=== PATIENT | female | born 1935 | race Caucasian/White ===

== ENCOUNTER 2017-12-20 11:47 | Emergency (ER) | payer OTHER ==
[~2017-12-20] VITALS: Ht 165.1 cm; Wt 80.0 kg
[2017-12-20 12:00] VITALS: BP 182/86; PULSE 101; RESP 16; TEMP 98.1; O2SAT 97
--- NOTE | 2017-12-20 13:47 | PD ---
HPI Chief Complaint: Injury Time Seen by Provider: 13:07 Travel History International Travel<30 days: No Contact w/Intl Traveler<30days: No Traveled to known affect area: No History of Present Illness HPI 82-year-old female presents to the emergency room via ambulance for evaluation of right knee and lower leg pain for the past 6 days. Patient slipped on some water in her kitchen and fell to the right striking her knee on furniture before falling to the ground. States it happened very quickly and she is unsure if she injured her leg in any other way. She denies hitting her doses. Denies any other complaints or injuries. She has been applying ice and taking Tylenol without significant relief in symptoms. Pain is localized to the right knee. She has minimal pain at rest but severe pain with ambulation. States she has been sitting in almost the same spot for the past 6 days because it is too painful to stand up and walk. When she tries to get up pain is localized to the anterior knee without radiation. She denies paresthesias. She is not on blood thinners. PFSH Past Medical History ?: Not Social History Tobacco Use: No Allergies-Medications (Allergen,Severity, Reaction): Coded Allergies: No Known Allergies (Unverified , 12/20/17) Reported Meds & Prescriptions Reported Meds & Active Scripts Active Reported [Unk Anxiety Med] [Unk Bp] 20 Mg DAILY Review of Systems Except as stated in HPI: all other systems reviewed are Neg Physical Exam Narrative GENERAL: Well-nourished, well-developed female no acute distress. Afebrile. SKIN: Focused skin assessment warm/dry. Significant ecchymosis to the right lower extremity from the knee to the ankle. HEAD: Normocephalic. EYES: No scleral icterus. No injection or drainage. NECK: Supple, trachea midline. No JVD or lymphadenopathy. CARDIOVASCULAR: Regular rate and rhythm without murmurs, gallops, or rubs. RESPIRATORY: Breath sounds equal bilaterally. No accessory muscle use. MUSCULOSKELETAL: No cyanosis. Hips stable. Minimal edema of the right lower extremity. No significant bony tenderness to palpation. No calf tenderness. 2 + dorsalis pedis pulse on the right. Patient has full range of motion of the right knee. BACK: Nontender without obvious deformity. No CVA tenderness. Data Data Last Documented VS Vital Signs Date Time Temp Pulse Resp B/P (MAP) Pulse Ox O2 Delivery O2 Flow Rate FiO2 12/20/17 12:00 98.1 101 16 182/86 (118) 97 Orders Orders Knee, Complete (4vws) (12/20/17 ) Tibia/Fibula (Ap/Lat) (12/20/17 ) Franko Bandage (12/20/17 14:18) Ed Discharge Order (12/20/17 15:14) MDM Medical Decision Making Medical Screen Exam Complete: Yes Emergency Medical Condition: Yes Medical Record Reviewed: Yes Differential Diagnosis Sprain, strain, contusion, effusion, dislocation Narrative Course 82-year-old female presents to the emergency room for evaluation of right knee pain and bruising after injuring it 6 days ago. Patient fell to the right striking her knee against furniture. Since then she has had worsening bruising that is spreading down her leg. Patient denies pain in the leg. States it is localized to the anterior knee. It has impeded her ability to ambulate. No paresthesias. Right lower extremity is neurovascularly intact with 2+ dorsalis pedis pulse. Patient has full range of motion of the knee. No bony tenderness to palpation of the knee or lower leg. No significant edema. Compartments soft. There is moderate ecchymosis of the right lower extremity, I suspect due to gravity from the injury. X-ray of the knee shows suprapatellar joint effusion. X-ray of tibia/fibula shows edema without fracture. Patient was placed in an Franko wrap and reports significant improvement in pain. She was offered pain medication but declined. The nurse walked with her down the cabral but she is extremely unsteady. I am concerned she may fall. She has a walker but only lives with her who is not much help. She would benefit from home physical therapy. [id number] note placed. Case management involved and set up home therapy to start on . She is making a follow-up appointment with her PCP for recheck in a few days. If symptoms persist, she may need outpatient MRI. Patient and her family member understand and agree to plan. Diagnosis Primary Impression: Suprapatellar effusion of knee Additional Impression: Traumatic ecchymosis of right lower leg Qualified Codes: S80.11XA - Contusion of right lower leg, initial encounter Referrals: Primary Care Physician Additional Instructions: Rest and drink plenty of fluids. Use Franko wrap and walker as needed. Take Tylenol as directed, as needed for pain. Apply ice to the affected area for 20 minutes at a time, as needed for pain and swelling. Follow-up with a primary care physician for recheck in a few days. Return to the emergency room for worsening symptoms. Disposition: 01 DISCHARGE HOME Condition: Stable Tawanna Dawkins Dec 20, 2017 13:47
--- NOTE | 2017-12-20 14:05 | RADRPT ---
EXAM DATE: 12/20/2017 1:57 PM EDT AGE/SEX: 82 years / Female INDICATIONS: Right knee pain after fall. Patient has bruising and swelling right lower leg. CLINICAL DATA: This is the patient's initial encounter. Patient reports that signs and symptoms have been present for 1 day and indicates a pain score of 8/10. MEDICAL/SURGICAL HISTORY: None. None. COMPARISON: No prior exams available for comparison. FINDINGS: Bony structures are intact and in normal alignment. Joints are intact without dislocation or signifi cant arthropathy. Osseous density is normal. Small suprapatellar joint effusion. Soft tissues are un remarkable. No radiopaque foreign bodies seen. CONCLUSION: 1. Small suprapatellar joint effusion. 2. No acute fracture or dislocation. Electronically signed by: Gerardo Farris MD 12/20/2017 2:03 PM EDT
--- NOTE | 2017-12-20 14:09 | RADRPT ---
EXAM DATE: 12/20/2017 2:01 PM EDT AGE/SEX: 82 years / Female INDICATIONS: Right leg pain, swelling and bruising after fall. CLINICAL DATA: This is the patient's initial encounter. Patient reports that signs and symptoms have been present for 4 - 6 days and indicates a pain score of 8/10. MEDICAL/SURGICAL HISTORY: None. None. COMPARISON: No prior exams available for comparison. FINDINGS: 2 views of the right leg demonstrate no fracture or dislocation. The bones appear mildly under minera lized. There is mild subcutaneous edema. No soft tissue abnormality or radiopaque foreign body is ana ntified. CONCLUSION: Mild subcutaneous edema. No fracture is identified. Electronically signed by: Bj Hernández MD 12/20/2017 2:08 PM EDT
[2017-12-20] MEDS ORDERED: [UNRECOGNIZED DRUG - REMARK] (14:33)
[2017-12-20] MEDS ORDERED: [UNRECOGNIZED DRUG - REMARK] (14:33)
--- NOTE | 2017-12-20 15:14 | HHI.FF ---
Face to Face Verification Diagnosis: (1) Suprapatellar effusion of knee (2) Traumatic ecchymosis of right lower leg Physical Therapy Order: Evaluate and Treat, Improve ambulation, Strength and gait training I have seen patient Yazmin Borden on 12/20/17. My clinical findings support the need for the requested home health care services because: High risk of falls I certify that my clinical findings support that this patient is homebound because: Unsteady gait/balance Tawanna Dawkins Dec 20, 2017 15:14
== END 2017-12-20 15:21 | disposition home or self-care (01) ==
LOC: NEPK 11:47
DX: M25.461 Effusion, right knee (principal); S80.01XA Contusion of right knee, initial encounter; W22.03XA Walked into furniture, initial encounter
CPT/HCPCS: 73564; 73590; 99283